=== PATIENT | female | born 1995 | race Caucasian/White ===

== ENCOUNTER 2019-08-02 13:23 | Emergency (ER) | payer OTHER ==
--- NOTE | 2019-08-02 13:30 | EDM.PDOC ---
ED HPI GENERAL MEDICAL PROBLEM - General Chief Complaint: Gastrointestinal Problem Stated Complaint: FLU SYMPTOMS Time Seen by Provider: 08/02/19 13:29 Source of Information: Reports: Patient History Limitations: Reports: No Limitations - History of Present Illness INITIAL COMMENTS - FREE TEXT/NARRATIVE: Patient is a 24-year-old female who is complaining of having diarrhea for the past 7 days. Patient was feeling nauseous several days ago but has had no vomiting. She is somewhat anorexic but has been able to keep down fluids. She denies any blood or pus in her stool. She is not had any fever or chills. She denies any dysuria or back pain. She feeling lightheaded when she stands up. She is complaining of some epigastric abdominal pain. Duration: Day(s): (7), Getting Worse Location: Reports: Abdomen Quality: Reports: Dull Severity: Mild Improves with: Reports: None Worsens with: Reports: Eating Associated Symptoms: Reports: No Other Symptoms abdominal Pain Score (Numeric/FACES): 6 - Related Data Allergies Allergy/AdvReac Type Severity Reaction Status Date / Time No Known Allergies Allergy Verified 08/02/19 13:39 Home Meds: Home Meds . [No Known Home Meds] 08/02/19 [History] ED ROS GENERAL - Review of Systems Review Of Systems: See Below Constitutional: Reports: Weakness, Decreased Appetite Respiratory: Reports: No Symptoms Cardiovascular: Reports: No Symptoms Endocrine: Reports: No Symptoms GI/Abdominal: Reports: Abdominal Pain, Diarrhea, Decreased Appetite. Denies: Distension, Mucous in Stool, Vomiting : Reports: Dysuria Musculoskeletal: Reports: No Symptoms Skin: Reports: No Symptoms Neurological: Reports: No Symptoms ED EXAM, GI/ABD - Physical Exam Exam: See Below Exam Limited By: No Limitations General Appearance: Alert, No Apparent Distress Head: Atraumatic, Normocephalic Neck: Normal Inspection, Supple, Non-Tender Respiratory/Chest: No Respiratory Distress, Lungs Clear, Normal Breath Sounds Cardiovascular: Normal Peripheral Pulses, Regular Rate, Rhythm, No JVD GI/Abdominal Exam: Normal Bowel Sounds, Soft, Non-Tender, No Organomegaly Back Exam: Normal Inspection. No: CVA Tenderness (L), CVA Tenderness (R) Neurological: Alert, Oriented Psychiatric: Normal Affect Skin Exam: Warm, Dry, Normal Color Course - Vital Signs Last Recorded V/S: Last Vital Signs Temp 36.6 C 08/02/19 13:37 Pulse 124 H 08/02/19 13:37 Resp 16 08/02/19 13:37 BP 141/100 H 08/02/19 13:37 Pulse Ox 95 08/02/19 13:37 - Orders/Labs/Meds Orders: Active Orders 24 hr Category Date Time Status WBC, STOOL [OP] Stat Lab 08/02/19 13:51 Ordered Sodium Chloride 0.9% [Saline Flush] Med 08/02/19 13:50 Active 10 ml FLUSH ASDIRECTED PRN Sodium Chloride 0.9% [Saline Flush] Med 08/02/19 13:50 Active 2.5 ml FLUSH ASDIRECTED PRN Sulfamethoxazole/Trimethoprim [Septra DS] Med 08/02/19 16:09 Once 1 tab PO ONETIME ONE Saline Lock Insert [OM.PC] Stat Oth 08/02/19 13:50 Ordered Medication Orders Sodium Chloride (Saline Flush) 10 ml FLUSH ASDIRECTED PRN PRN Reason: Keep Vein Open Last Admin: 08/02/19 14:07 Dose: 10 ml Sodium Chloride (Saline Flush) 2.5 ml FLUSH ASDIRECTED PRN PRN Reason: Keep Vein Open Last Admin: 08/02/19 14:07 Dose: 2.5 ml Trimethoprim/Sulfamethoxazole (Septra Ds) 1 tab PO ONETIME ONE Stop: 08/02/19 16:10 Labs: Laboratory Tests 08/02/19 08/02/19 08/02/19 Range/Units 14:10 14:10 14:56 WBC 12.02 H (4.0-11.0) K/uL RBC 4.85 (4.30-5.90) M/uL Hgb 14.5 (12.0-16.0) g/dL Hct 43.3 (36.0-46.0) % MCV 89.3 (80.0-98.0) fL MCH 29.9 (27.0-32.0) pg MCHC 33.5 (31.0-37.0) g/dL RDW Std Deviation 42.4 (28.0-62.0) fl RDW Coeff of Lamonte 13 (11.0-15.0) % Plt Count 292 (150-400) K/uL MPV 10.90 (7.40-12.00) fL Neut % (Auto) 66.3 (48.0-80.0) % Lymph % (Auto) 26.1 (16.0-40.0) % [place] % (Auto) 6.5 (0.0-15.0) % Eos % (Auto) 0.9 (0.0-7.0) % Baso % (Auto) 0.2 (0.0-1.5) % Neut # (Auto) 8.0 H (1.4-5.7) K/uL Lymph # (Auto) 3.1 H (0.6-2.4) K/uL [place] # (Auto) 0.8 (0.0-0.8) K/uL Eos # (Auto) 0.1 (0.0-0.7) K/uL Baso # (Auto) 0.0 (0.0-0.1) K/uL Nucleated RBC % 0.0 /100WBC Nucleated RBCs # 0 K/uL Sodium 141 (136-145) mmol/L Potassium 3.6 (3.5-5.1) mmol/L Chloride 105 (98-107) mmol/L Carbon Dioxide 26.0 (21.0-32.0) mmol/L BUN 14 (7.0-18.0) mg/dL Creatinine 0.9 (0.6-1.0) mg/dL Est Cr Clr Drug Dosing 111.23 mL/min Estimated GFR (MDRD) > 60.0 ml/min Glucose 111 H (74-106) mg/dL Calcium 9.1 (8.5-10.1) mg/dL Total Bilirubin 0.2 (0.2-1.0) mg/dL AST 11 L (15-37) IU/L ALT 22 (14-63) IU/L Alkaline Phosphatase 84 (46-116) U/L Total Protein 7.9 (6.4-8.2) g/dL Albumin 4.0 (3.4-5.0) g/dL Globulin 3.9 (2.6-4.0) g/dL Albumin/Globulin Ratio 1.0 (0.9-1.6) Urine Color YELLOW Urine Appearance SLT CLOUDY Urine pH 5.5 (5.0-8.0) Ur Specific [place] >= 1.030 (1.001-1.035) Urine Protein NEGATIVE (NEGATIVE) mg/dL Urine Glucose (UA) NEGATIVE (NEGATIVE) mg/dL Urine Ketones NEGATIVE (NEGATIVE) mg/dL Urine Occult Blood TRACE-INTACT H (NEGATIVE) Urine Nitrite NEGATIVE (NEGATIVE) Urine Bilirubin NEGATIVE (NEGATIVE) Urine Urobilinogen 0.2 (<2.0) EU/dL Ur Leukocyte Esterase SMALL H (NEGATIVE) Urine RBC 1-3 (0-2/HPF) Urine WBC 30-35 (0-5/HPF) Ur Epithelial Cells MODERATE (NONE-FEW) Urine Bacteria 3+ H (NEGATIVE) Urine Mucus HEAVY (NONE-MOD) Urine HCG, Qual (NEGATIVE) 08/02/19 Range/Units 14:56 WBC (4.0-11.0) K/uL RBC (4.30-5.90) M/uL Hgb (12.0-16.0) g/dL Hct (36.0-46.0) % MCV (80.0-98.0) fL MCH (27.0-32.0) pg MCHC (31.0-37.0) g/dL RDW Std Deviation (28.0-62.0) fl RDW Coeff of [place] (11.0-15.0) % Plt Count (150-400) K/uL MPV (7.40-12.00) fL Neut % (Auto) (48.0-80.0) % Lymph % (Auto) (16.0-40.0) % [place] % (Auto) (0.0-15.0) % Eos % (Auto) (0.0-7.0) % Baso % (Auto) (0.0-1.5) % Neut # (Auto) (1.4-5.7) K/uL Lymph # (Auto) (0.6-2.4) K/uL [place] # (Auto) (0.0-0.8) K/uL Eos # (Auto) (0.0-0.7) K/uL Baso # (Auto) (0.0-0.1) K/uL Nucleated RBC % /100WBC Nucleated RBCs # K/uL Sodium (136-145) mmol/L Potassium (3.5-5.1) mmol/L Chloride (98-107) mmol/L Carbon Dioxide (21.0-32.0) mmol/L BUN (7.0-18.0) mg/dL Creatinine (0.6-1.0) mg/dL Est Cr Clr Drug Dosing mL/min Estimated GFR (MDRD) ml/min Glucose (74-106) mg/dL Calcium (8.5-10.1) mg/dL Total Bilirubin (0.2-1.0) mg/dL AST (15-37) IU/L ALT (14-63) IU/L Alkaline Phosphatase (46-116) U/L Total Protein (6.4-8.2) g/dL Albumin (3.4-5.0) g/dL Globulin (2.6-4.0) g/dL Albumin/Globulin Ratio (0.9-1.6) Urine Color Urine Appearance Urine pH (5.0-8.0) Ur Specific [place] (1.001-1.035) Urine Protein (NEGATIVE) mg/dL Urine Glucose (UA) (NEGATIVE) mg/dL Urine Ketones (NEGATIVE) mg/dL Urine Occult Blood (NEGATIVE) Urine Nitrite (NEGATIVE) Urine Bilirubin (NEGATIVE) Urine Urobilinogen (<2.0) EU/dL Ur Leukocyte Esterase (NEGATIVE) Urine RBC (0-2/HPF) Urine WBC (0-5/HPF) Ur Epithelial Cells (NONE-FEW) Urine Bacteria (NEGATIVE) Urine Mucus (NONE-MOD) Urine HCG, Qual NEGATIVE (NEGATIVE) Meds: Medications Generic Name Dose Route Start Last Admin Trade Name Freq PRN Reason Stop Dose Admin Sodium Chloride 10 ml 08/02/19 13:50 08/02/19 14:07 Saline Flush FLUSH 10 ml ASDIRECTED PRN Administration Keep Vein Open Sodium Chloride 2.5 ml 08/02/19 13:50 08/02/19 14:07 Saline Flush FLUSH 2.5 ml ASDIRECTED PRN Administration Keep Vein Open Trimethoprim/Sulfamethoxazole 1 tab 08/02/19 16:09 Septra Ds PO 08/02/19 16:10 ONETIME ONE Discontinued Medications Generic Name Dose Route Start Last Admin Trade Name Freq PRN Reason Stop Dose Admin Sodium Chloride 1,000 mls @ 999 mls/hr 08/02/19 13:50 08/02/19 14:06 Normal Saline IV 08/02/19 14:50 999 mls/hr BOLUS ONE Administration - Re-Assessments/Exams Free Text/Narrative Re-Assessment/Exam: 08/02/19 16:12 Patient has had no diarrhea while in the department. She is feeling better at this time and her lab work is negative except for urinary tract infection. I am starting her on Bactrim which should treat the UTI and advising her to do [id number] Imodium if the diarrhea is continuing. She should return to ER if symptoms are worse. See her PCP if not improving. Departure - Departure Time of Disposition: 16:13 Disposition: Home, Self-Care 01 Condition: Good Clinical Impression: Diarrhea, UTI, Urinary tract infectious disease - Discharge Information Instructions: Dehydration, Adult, [id number], Viral Gastroenteritis, Adult, [id number] Referrals: PCP,None [Primary Care Provider] - Forms: ED Department Discharge Additional Instructions: The following information is given to patients seen in the emergency department who are being discharged to home. This information is to outline your options for follow-up care. We provide all patients seen in our emergency department with a follow-up referral. The need for follow-up, as well as the timing and circumstances, are variable depending upon the specifics of your emergency department visit. If you don't have a primary care physician on staff, we will provide you with a referral. We always advise you to contact your personal physician following an emergency department visit to inform them of the circumstance of the visit and for follow-up with them and/or the need for any referrals to a consulting specialist. The emergency department will also refer you to a specialist when appropriate. This referral assures that you have the opportunity for follow-up care with a specialist. All of these measure are taken in an effort to provide you with optimal care, which includes your follow-up. Under all circumstances we always encourage you to contact your private physician who remains a resource for coordinating your care. When calling for follow-up care, please make the office aware that this follow-up is from your recent emergency room visit. If for any reason you are refused follow-up, please contact the [facility] Emergency Department at and asked to speak to the emergency department charge nurse. Sepsis Event Note - Focused Exam Vital Signs: Vital Signs Temp Pulse Resp BP Pulse Ox 08/02/19 13:37 36.6 C 124 H 16 141/100 H 95 Date Exam was Performed: 08/02/19 Time Exam was Performed: 16:10 - My Orders Last 24 Hours: My Active Orders 08/02/19 13:50 Sodium Chloride 0.9% [Saline Flush] 10 ml FLUSH ASDIRECTED PRN Sodium Chloride 0.9% [Saline Flush] 2.5 ml FLUSH ASDIRECTED PRN Saline Lock Insert [OM.PC] Stat 08/02/19 13:51 WBC, STOOL [OP] Stat 08/02/19 16:09 Sulfamethoxazole/Trimethoprim [Septra DS] 1 tab PO ONETIME ONE - Assessment/Plan Last 24 Hours: My Active Orders 08/02/19 13:50 Sodium Chloride 0.9% [Saline Flush] 10 ml FLUSH ASDIRECTED PRN Sodium Chloride 0.9% [Saline Flush] 2.5 ml FLUSH ASDIRECTED PRN Saline Lock Insert [OM.PC] Stat 08/02/19 13:51 WBC, STOOL [OP] Stat 08/02/19 16:09 Sulfamethoxazole/Trimethoprim [Septra DS] 1 tab PO ONETIME ONE
[2019-08-02] MEDS ORDERED: Sodium Chloride 0.9% 10 ML Syringe FLUSH PRN (13:50)
[2019-08-02] MEDS ORDERED: Sodium Chloride 0.9% 1,000 ML IV ONE (13:50)
[2019-08-02] MEDS ORDERED: Sodium Chloride 0.9% 2.5 ML Syringe FLUSH PRN (13:50)
[2019-08-02 14:35] LABS: BLOOD UREA NITROGEN,BUN 14 mg/dL (7.0-18.0); CHLORIDE,CL 105 mmol/L (98-107); GLUCOSE RANDOM 111 mg/dL (74-106); POTASSIUM,K 3.6 mmol/L (3.5-5.1); SODIUM,NA 141 mmol/L (136-145)
[2019-08-02] MEDS ORDERED: Sulfamethoxazole/Trimethoprim 800-160 MG Tab PO ONE (16:09)
== END 2019-08-02 17:01 | disposition home or self-care (01) ==
LOC: MW.ED 13:23
DX: R19.7 Diarrhea, unspecified (principal); N39.0 Urinary tract infection, site not specified
CPT/HCPCS: 80053; 81001; 81025; 85025; 96360; 96361; 99284; A9270; J7030

== ENCOUNTER 2019-08-04 07:48 | Emergency (ER) | payer OTHER ==
--- NOTE | 2019-08-04 08:05 | EDM.PDOC ---
ED HPI GENERAL MEDICAL PROBLEM - General Chief Complaint: Back Pain or Injury Stated Complaint: SEVERE LOWER BACK SPASMS Time Seen by Provider: 08/04/19 07:54 Source of Information: Reports: Patient History Limitations: Reports: No Limitations - History of Present Illness INITIAL COMMENTS - FREE TEXT/NARRATIVE: Patient is a 24-year-old female who is complaining of lower back pain worse on the right is been ongoing for the last 2 days. Patient is getting right lower extremity radiculopathy with this pain. She has had previously similar pain in the past but never as severe. She was seen by me several days ago's with a urinary tract infection and a gastroenteritis. At that time she has not had any back pain. She denies any injury lifting or twisting prior to onset of the pain. She denies any fever or chills and has no incontinence complaints. Her previous diarrhea has resolved. She is taking nothing for current symptoms. Duration: Day(s): (2) Location: Reports: Back Quality: Reports: Ache, Dull Severity: Severe Improves with: Reports: None Worsens with: Reports: Movement Context: Reports: Activity Associated Symptoms: Reports: No Other Symptoms Low Right Back Pain Score (Numeric/FACES): 8 - Related Data Allergies Allergy/AdvReac Type Severity Reaction Status Date / Time No Known Allergies Allergy Verified 08/04/19 08:06 Home Meds: Home Meds Acetaminophen/HYDROcodone [[place] 325-5 MG] 1 tab PO Q6H PRN #10 tablet 08/04/19 [Rx] Lidocaine 5% [Lidoderm 5%] 1 patch TOP DAILY PRN #14 patch 08/04/19 [Rx] Ondansetron [Zofran ODT] 4 mg PO Q6H PRN #10 tab.dis 08/04/19 [Rx] predniSONE 20 mg PO WITHBREAKFAST PRN #7 tab 08/04/19 [Rx] Past Medical History [employer] History: Reports: Endometriosis Endocrine/Metabolic History: Reports: Hypothyroidism, Other (See Below) Other Endocrine/Metabolic History: Insulin Resistant Social & Family History - Family History Family Medical History: Noncontributory Endocrine/Metabolic: Reports: Diabetes, Type I ED ROS GENERAL - Review of Systems Review Of Systems: Comprehensive ROS is negative, except as noted in HPI. ED EXAM,LOWER BACK PAIN/INJURY - Physical Exam Exam: See Below Exam Limited By: No Limitations General Appearance: Alert, Mild Distress Head: Atraumatic, Normocephalic Neck: Normal Inspection Respiratory/Chest: No Respiratory Distress, Lungs Clear, Normal Breath Sounds Cardiovascular: Regular Rate, Rhythm, No Edema, No JVD GI/Abdominal: Normal Bowel Sounds, Soft, Non-Tender Back Exam: Normal Inspection, Decreased Range of Motion, Muscle Spasm, Paraspinal Tenderness. No: Vertebral Tenderness Extremities: Normal Inspection Neurological: Alert Psychiatric: Normal Affect, Normal Mood Skin Exam: Warm, Dry Lymphatic: No Adenopathy Course - Vital Signs Last Recorded V/S: Last Vital Signs Temp 36.3 C 08/04/19 08:01 Pulse 87 08/04/19 11:13 Resp 18 08/04/19 11:13 BP 138/81 08/04/19 11:13 Pulse Ox 98 08/04/19 11:13 - Orders/Labs/Meds Orders: Active Orders 24 hr Category Date Time Status Sodium Chloride 0.9% [Saline Flush] Med 08/04/19 08:11 Active 10 ml FLUSH ASDIRECTED PRN Sodium Chloride 0.9% [Saline Flush] Med 08/04/19 08:11 Active 2.5 ml FLUSH ASDIRECTED PRN Saline Lock Insert [OM.PC] Stat Oth 08/04/19 08:11 Ordered Medication Orders Sodium Chloride (Saline Flush) 10 ml FLUSH ASDIRECTED PRN PRN Reason: Keep Vein Open Last Admin: 08/04/19 08:43 Dose: 10 ml Sodium Chloride (Saline Flush) 2.5 ml FLUSH ASDIRECTED PRN PRN Reason: Keep Vein Open Last Admin: 08/04/19 08:43 Dose: 2.5 ml Labs: Laboratory Tests 08/04/19 08/04/19 08/04/19 Range/Units 11:10 11:10 11:10 WBC 12.04 H (4.0-11.0) K/uL RBC 4.57 (4.30-5.90) M/uL Hgb 13.6 (12.0-16.0) g/dL Hct 41.2 (36.0-46.0) % MCV 90.2 (80.0-98.0) fL MCH 29.8 (27.0-32.0) pg MCHC 33.0 (31.0-37.0) g/dL RDW Std Deviation 42.6 (28.0-62.0) fl RDW Coeff of [place] 13 (11.0-15.0) % Plt Count 250 (150-400) K/uL MPV 10.80 (7.40-12.00) fL Neut % (Auto) 89.1 H (48.0-80.0) % Lymph % (Auto) 8.4 L (16.0-40.0) % [place] % (Auto) 2.2 (0.0-15.0) % Eos % (Auto) 0.1 (0.0-7.0) % Baso % (Auto) 0.2 (0.0-1.5) % Neut # (Auto) 10.7 H (1.4-5.7) K/uL Lymph # (Auto) 1.0 (0.6-2.4) K/uL [place] # (Auto) 0.3 (0.0-0.8) K/uL Eos # (Auto) 0.0 (0.0-0.7) K/uL Baso # (Auto) 0.0 (0.0-0.1) K/uL Nucleated RBC % 0.0 /100WBC Nucleated RBCs # 0 K/uL Sodium 141 (136-145) mmol/L Potassium 3.5 (3.5-5.1) mmol/L Chloride 107 (98-107) mmol/L Carbon Dioxide 24.5 (21.0-32.0) mmol/L BUN 6 L (7.0-18.0) mg/dL Creatinine 0.8 (0.6-1.0) mg/dL Est Cr Clr Drug Dosing 125.13 mL/min Estimated GFR (MDRD) > 60.0 ml/min Glucose 103 (74-106) mg/dL Calcium 8.9 (8.5-10.1) mg/dL Total Bilirubin 0.4 (0.2-1.0) mg/dL AST 14 L (15-37) IU/L ALT 19 (14-63) IU/L Alkaline Phosphatase 71 (46-116) U/L Total Protein 7.2 (6.4-8.2) g/dL Albumin 3.6 (3.4-5.0) g/dL Globulin 3.6 (2.6-4.0) g/dL Albumin/Globulin Ratio 1.0 (0.9-1.6) Urine Color YELLOW Urine Appearance HAZY Urine pH 5.5 (5.0-8.0) Ur Specific [place] 1.010 (1.001-1.035) Urine Protein NEGATIVE (NEGATIVE) mg/dL Urine Glucose (UA) NEGATIVE (NEGATIVE) mg/dL Urine Ketones NEGATIVE (NEGATIVE) mg/dL Urine Occult Blood TRACE-LYSED H (NEGATIVE) Urine Nitrite NEGATIVE (NEGATIVE) Urine Bilirubin NEGATIVE (NEGATIVE) Urine Urobilinogen 0.2 (<2.0) EU/dL Ur Leukocyte Esterase SMALL H (NEGATIVE) Urine RBC 0-2 (0-2/HPF) Urine WBC 3-5 (0-5/HPF) Ur Epithelial Cells FEW (NONE-FEW) Urine Bacteria 1+ H (NEGATIVE) Urine Mucus LIGHT (NONE-MOD) Urine Trichomonas PRESENT (NEGATIVE) Meds: Medications Generic Name Dose Route Start Last Admin Trade Name Freq PRN Reason Stop Dose Admin Sodium Chloride 10 ml 08/04/19 08:11 08/04/19 08:43 Saline Flush FLUSH 10 ml ASDIRECTED PRN Administration Keep Vein Open Sodium Chloride 2.5 ml 08/04/19 08:11 08/04/19 08:43 Saline Flush FLUSH 2.5 ml ASDIRECTED PRN Administration Keep Vein Open Discontinued Medications Generic Name Dose Route Start Last Admin Trade Name Freq PRN Reason Stop Dose Admin Cyclobenzaprine HCl 5 mg 08/04/19 08:11 08/04/19 08:42 Flexeril PO 08/04/19 08:12 5 mg ONETIME ONE Administration Sodium Chloride 1,000 mls @ 999 mls/hr 08/04/19 08:11 08/04/19 08:39 Normal Saline IV 08/04/19 09:11 999 mls/hr BOLUS ONE Administration Ketorolac Tromethamine 30 mg 08/04/19 08:11 08/04/19 08:42 Toradol IVPUSH 08/04/19 08:12 30 mg ONETIME ONE Administration Lidocaine 700 mg 08/04/19 10:12 08/04/19 10:43 Lidoderm 5% TOP 08/04/19 10:13 700 mg ONETIME ONE Administration Oxycodone/Acetaminophen 1 tab 08/04/19 09:46 08/04/19 09:51 Percocet 325-5 Mg PO 08/04/19 09:47 1 tab ONETIME ONE Administration Prednisone 60 mg 08/04/19 08:11 08/04/19 08:39 Prednisone PO 08/04/19 08:12 60 mg ONETIME ONE Administration - Re-Assessments/Exams Free Text/Narrative Re-Assessment/Exam: 08/04/19 10:09 Patient is feeling mildly improved after fluids and medications. I have given her Percocet for the back pain. Departure - Departure Time of Disposition: 11:53 Disposition: Home, Self-Care 01 Condition: Good Clinical Impression: Lower back pain - Discharge Information Instructions: Pain Without a Known Cause Referrals: PCP,None [Primary Care Provider] - Forms: ED Department Discharge Additional Instructions: Ice and or heat, massage if tolerated. Ibuprofen with meals. Meds as prescribed. Continue with Bactrim. Return to ER if having fever chills vomiting or worse. Care Plan Goals: The following information is given to patients seen in the emergency department who are being discharged to home. This information is to outline your options for follow-up care. We provide all patients seen in our emergency department with a follow-up referral. The need for follow-up, as well as the timing and circumstances, are variable depending upon the specifics of your emergency department visit. If you don't have a primary care physician on staff, we will provide you with a referral. We always advise you to contact your personal physician following an emergency department visit to inform them of the circumstance of the visit and for follow-up with them and/or the need for any referrals to a consulting specialist. The emergency department will also refer you to a specialist when appropriate. This referral assures that you have the opportunity for follow-up care with a specialist. All of these measure are taken in an effort to provide you with optimal care, which includes your follow-up. Under all circumstances we always encourage you to contact your private physician who remains a resource for coordinating your care. When calling for follow-up care, please make the office aware that this follow-up is from your recent emergency room visit. If for any reason you are refused follow-up, please contact the [facility] Emergency Department at and asked to speak to the emergency department charge nurse. Sepsis Event Note - Focused Exam Vital Signs: Vital Signs Temp Pulse Resp BP Pulse Ox 08/04/19 11:13 87 18 138/81 98 08/04/19 09:15 77 18 127/83 98 08/04/19 08:01 36.3 C 121 H 18 122/88 96 Date Exam was Performed: 08/04/19 Time Exam was Performed: 11:53 - My Orders Last 24 Hours: My Active Orders 08/04/19 08:11 Sodium Chloride 0.9% [Saline Flush] 10 ml FLUSH ASDIRECTED PRN Sodium Chloride 0.9% [Saline Flush] 2.5 ml FLUSH ASDIRECTED PRN Saline Lock Insert [OM.PC] Stat - Assessment/Plan Last 24 Hours: My Active Orders 08/04/19 08:11 Sodium Chloride 0.9% [Saline Flush] 10 ml FLUSH ASDIRECTED PRN Sodium Chloride 0.9% [Saline Flush] 2.5 ml FLUSH ASDIRECTED PRN Saline Lock Insert [OM.PC] Stat
[2019-08-04] MEDS ORDERED: predniSONE 10 MG Tab PO ONE (08:11)
[2019-08-04] MEDS ORDERED: Sodium Chloride 0.9% 2.5 ML Syringe FLUSH PRN (08:11)
[2019-08-04] MEDS ORDERED: Ketorolac 30 MG/ML SDV IVPUSH ONE (08:11)
[2019-08-04] MEDS ORDERED: Cyclobenzaprine 10 MG Tab PO ONE (08:11)
[2019-08-04] MEDS ORDERED: Sodium Chloride 0.9% 10 ML Syringe FLUSH PRN (08:11)
[2019-08-04] MEDS ORDERED: Sodium Chloride 0.9% 1,000 ML IV ONE (08:11)
[2019-08-04] MEDS ORDERED: Acetaminophen/oxyCODONE 325-5 MG Tab PO ONE (09:46)
[2019-08-04] MEDS ORDERED: Lidocaine 5% 700 MG Patch TOP ONE (10:12)
[2019-08-04 11:38] LABS: BLOOD UREA NITROGEN,BUN 6 mg/dL (7.0-18.0); CARBON DIOXIDE,CO2 24.5 mmol/L (21.0-32.0); CHLORIDE,CL 107 mmol/L (98-107); GLUCOSE RANDOM 103 mg/dL (74-106); POTASSIUM,K 3.5 mmol/L (3.5-5.1); SODIUM,NA 141 mmol/L (136-145)
== END 2019-08-04 12:33 | disposition home or self-care (01) ==
LOC: MW.ED 07:48
DX: M54.5 Low back pain (principal)
CPT/HCPCS: 36415; 80053; 81001; 85025; 96361; 96374; 99283; A9270; J1885; J7030

== ENCOUNTER 2021-05-26 16:37 | Emergency (ER) | payer BC ==
[2021-05-26] MEDS ORDERED: Ketorolac 15 MG/ML SDV IVPUSH STA (16:57)
[2021-05-26] MEDS ORDERED: Acetaminophen 500 MG Tab PO ONE (16:57)
[2021-05-26] MEDS ORDERED: Sodium Chloride 0.9% 1,000 ML IV ONE ×2 (16:57→17:15)
--- NOTE | 2021-05-26 16:57 | EDM.PDOC ---
<KushalannEdis samayoa Sammi - Last Filed: 05/26/21 18:11> ED HPI GENERAL MEDICAL PROBLEM - General Chief Complaint: Respiratory Problem Stated Complaint: POSSIBLE PNEUMONIA Time Seen by Provider: 05/26/21 16:37 Source of Information: Reports: Patient History Limitations: Reports: No Limitations - History of Present Illness INITIAL COMMENTS - FREE TEXT/NARRATIVE: 25-year-old female presents for concern for pneumonia. Patient notes that for roughly the last week she thought that she had laryngitis due to a sore throat, nonproductive cough, shortness of breath. 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 She did go to an outpatient clinic on Wednesday and had a rapid Covid and influenza test which were both negative. She was diagnosed with presumptive bronchitis. She notes that she has had worsening difficulty breathing, dizziness, nausea, body aches. Chest Pain Score (Numeric/FACES): 7 - Related Data Allergies Allergy/AdvReac Type Severity Reaction Status Date / Time No Known Allergies Allergy Verified 05/26/21 16:58 Home Meds: Home Meds Codeine/guaiFENesin [guaiFENesin-Codeine Syrup] 10 ml PO Q6H PRN #240 ml 05/26/21 [Rx] DULoxetine [Cymbalta] 90 mg PO DAILY 05/26/21 [History] cloNIDine HCL [Clonidine HCl] 1 tab PO DAILY 05/26/21 [History] hydrOXYzine HCL [Hydroxyzine HCl] 1 tab PO DAILY 05/26/21 [History] Past Medical History [employer] History: Reports: Endometriosis Endocrine/Metabolic History: Reports: Hypothyroidism, Other (See Below) Other Endocrine/Metabolic History: Insulin Resistant Social & Family History - Family History Family Medical History: No Pertinent Family History Endocrine/Metabolic: Reports: Diabetes, Type I - Caffeine Use Caffeine Use: Reports: Coffee, Tea ED ROS GENERAL - Review of Systems Review Of Systems: Comprehensive ROS is negative, except as noted in HPI. ED EXAM, GENERAL - Physical Exam Exam: See Below Exam Limited By: No Limitations General Appearance: Alert, WD/WN, No Apparent Distress Ears: Hearing Grossly Normal Throat/Mouth: Normal Voice, No Airway Compromise Head: Atraumatic, Normocephalic Neck: Normal Inspection Respiratory/Chest: No Respiratory Distress, Lungs Clear, Normal Breath Sounds, No Accessory Muscle Use Cardiovascular: Normal Peripheral Pulses, Tachycardia Extremities: Normal Inspection Neurological: Alert, Normal Cognition Psychiatric: Normal Affect, Normal Mood Course - Re-Assessments/Exams Free Text/Narrative Re-Assessment/Exam: 05/26/21 17:16 Patient presents with Covid-like symptoms, significant tachycardia. Will get labs. Will give 2 L IV fluid bolus. Will give Toradol and Tylenol. Will get chest x-ray. Will get Covid testing. 05/26/21 18:03 D-dimer elevated. Will get CTA chest. 05/26/21 18:10 COVID testing and labs grossly unremarkable aside from mild leukocytosis and the elevated D-dimer. Will get CTA to r/o PE. HR has decreased to 100 Departure - Departure Disposition: Home, Self-Care 01 Clinical Impression: Bronchitis - Discharge Information Instructions: Acute Bronchitis, Adult, [id number] Referrals: PCP,None [Primary Care Provider] - Forms: ED Department Discharge Additional Instructions: You were seen and evaluated in ER today secondary to signs and symptoms consistent with bronchitis. Your D-dimer test was slightly elevated. This is an extremely nonspecific test but sometimes it is elevated with blood clots in the lung. After 2 unsuccessful attempts of obtaining a CT angiogram of your chest, I feel that it would be in your best interest to hold off on giving you any more contrast dye and to reevaluate your symptoms in the next 1 to 2 days. If you still have chest discomfort I would recommend that you return to the ER and we can perform a CTA at that point. Your presentation appears to be more consistent with bronchitis and the pain in your chest appears to be more consistent with pain from the persistent coughing inflammation that you have been experiencing in your lungs. You will be discharged home with instructions to continue your antibiotics and I will write you a prescription for Robitussin with codeine to help you get some sleep at night. Please make an appointment to see your family doctor in the next 1 to 2 days. Please return to ER sooner if you develop any new or concerning symptoms. The following information is given to patients seen in the emergency department who are being discharged to home. This information is to outline your options for follow-up care. We provide all patients seen in our emergency department with a follow-up referral. The need for follow-up, as well as the timing and circumstances, are variable depending upon the specifics of your emergency department visit. If you don't have a primary care physician on staff, we will provide you with a referral. We always advise you to contact your personal physician following an emergency department visit to inform them of the circumstance of the visit and for follow-up with them and/or the need for any referrals to a consulting specialist. The emergency department will also refer you to a specialist when appropriate. This referral assures that you have the opportunity for follow-up care with a specialist. All of these measure are taken in an effort to provide you with optimal care, which includes your follow-up. Under all circumstances we always encourage you to contact your private physician who remains a resource for coordinating your care. When calling for follow-up care, please make the office aware that this follow-up is from your recent emergency room visit. If for any reason you are refused follow-up, please contact the [facility] Emergency Department at and asked to speak to the emergency department charge nurse. [facility] - Primary Care [address] [place] [address] [id number] [address] [address] Sepsis Event Note (ED) - Evaluation Sepsis Screening Result: No Definite Risk <Brian Childers - Last Filed: 05/26/21 21:58> ED HPI GENERAL MEDICAL PROBLEM - History of Present Illness INITIAL COMMENTS - FREE TEXT/NARRATIVE: 9:53 PM: Signout received at 7 PM. Patient presents ER today secondary to cough URI symptoms and chest discomfort. Patient has slightly elevated D-dimer so a CTA was ordered. Patient CTA was suboptimal and they were unable to evaluate the pulmonary artery trees. Patient had a repeat CTA performed and again there was infiltration of the contrast in her arm. At this point, I do not feel that it would be beneficial for the patient to receive any further contrast. Patient's presentation appears to be extremely low risk for pulmonary embolism. Patient does have a cough and URI symptoms and has taken Zithromax. I would recommend at this time starting the patient on Robitussin with codeine to help her get some rest and I recommended that she return to the ED in the next 1 to 2 days if her symptoms are not resolved and we can consider getting a CTA at that point. Patient feels very comfortable with this plan. Reassessment at the time of disposition demonstrates that the patient is in no acute distress. The patient has remained stable throughout the entire ED visit and is without objective evidence for acute process requiring urgent intervention or hospitalization. The patient is stable for discharge, counseling is provided as documented above, discussed symptomatic treatment and specific conditions for return. I have spoken with the patient/caregiver and discussed todays findings, in addition to providing specific details for the plan of care. Questions are answered and there is agreement with the plan. ED ROS GENERAL - Review of Systems Review Of Systems: See Below ED EXAM, GENERAL - Physical Exam Exam: See Below Course - Vital Signs Last Recorded V/S: Last Vital Signs Temp 96.9 F 05/26/21 16:49 Pulse 119 H 05/26/21 20:41 Resp 22 H 05/26/21 16:49 BP 130/78 05/26/21 20:41 Pulse Ox 99 05/26/21 20:41 - Orders/Labs/Meds Orders: Active Orders 24 hr Category Date Time Status Pulse Oximetry [RC] ASDIRECTED Care 05/26/21 16:57 Active Ang Chest [CT] Stat Exams 05/26/21 19:50 Ordered Saline Lock Insert [OM.PC] Stat Oth 05/26/21 16:57 Ordered Labs: Laboratory Tests 05/26/21 05/26/21 05/26/21 Range/Units 17:06 17:20 17:20 WBC 11.51 H (4.0-11.0) K/uL RBC 4.71 (4.30-5.90) M/uL Hgb 14.0 (12.0-16.0) g/dL Hct 43.0 (36.0-46.0) % MCV 91.3 (80.0-98.0) fL MCH 29.7 (27.0-32.0) pg MCHC 32.6 (31.0-37.0) g/dL RDW Std Deviation 43.8 (28.0-62.0) fl RDW Coeff of Lamonte 13 (11.0-15.0) % Plt Count 322 (150-400) K/uL MPV 10.80 (7.40-12.00) fL Neut % (Auto) 72.2 (48.0-80.0) % Lymph % (Auto) 16.7 (16.0-40.0) % [place] % (Auto) 8.3 (0.0-15.0) % Eos % (Auto) 2.6 (0.0-7.0) % Baso % (Auto) 0.2 (0.0-1.5) % Neut # (Auto) 8.3 H (1.4-5.7) K/uL Lymph # (Auto) 1.9 (0.6-2.4) K/uL [place] # (Auto) 1.0 H (0.0-0.8) K/uL Eos # (Auto) 0.3 (0.0-0.7) K/uL Baso # (Auto) 0.0 (0.0-0.1) K/uL Nucleated RBC % 0.0 /100WBC Nucleated RBCs # 0 K/uL INR 1.08 APTT 24.5 (18.6-31.3) SEC D-Dimer, Quantitative 0.61 H (0.0-0.50) mg/L FEU Sodium (136-145) mmol/L Potassium (3.5-5.1) mmol/L Chloride (98-107) mmol/L Carbon Dioxide (21.0-32.0) mmol/L BUN (7.0-18.0) mg/dL Creatinine (0.6-1.0) mg/dL Est Cr Clr Drug Dosing mL/min Estimated GFR (MDRD) ml/min Glucose (74-106) mg/dL Lactic Acid (0.4-2.0) mmol/L Calcium (8.5-10.1) mg/dL Total Bilirubin (0.2-1.0) mg/dL AST (15-37) IU/L ALT (14-63) IU/L Alkaline Phosphatase (46-116) U/L Troponin I (0.000-0.056) ng/mL Total Protein (6.4-8.2) g/dL Albumin (3.4-5.0) g/dL Globulin (2.6-4.0) g/dL Albumin/Globulin Ratio (0.9-1.6) HCG, Qual (NEG) SARS-CoV-2 RNA (DORIS) NEGATIVE (NEGATIVE) 05/26/21 05/26/21 05/26/21 Range/Units 17:20 17:20 17:35 WBC (4.0-11.0) K/uL RBC (4.30-5.90) M/uL Hgb (12.0-16.0) g/dL Hct (36.0-46.0) % MCV (80.0-98.0) fL MCH (27.0-32.0) pg MCHC (31.0-37.0) g/dL RDW Std Deviation (28.0-62.0) fl RDW Coeff of Lamonte (11.0-15.0) % Plt Count (150-400) K/uL MPV (7.40-12.00) fL Neut % (Auto) (48.0-80.0) % Lymph % (Auto) (16.0-40.0) % [place] % (Auto) (0.0-15.0) % Eos % (Auto) (0.0-7.0) % Baso % (Auto) (0.0-1.5) % Neut # (Auto) (1.4-5.7) K/uL Lymph # (Auto) (0.6-2.4) K/uL [place] # (Auto) (0.0-0.8) K/uL Eos # (Auto) (0.0-0.7) K/uL Baso # (Auto) (0.0-0.1) K/uL Nucleated RBC % /100WBC Nucleated RBCs # K/uL INR APTT (18.6-31.3) SEC D-Dimer, Quantitative (0.0-0.50) mg/L FEU Sodium 142 (136-145) mmol/L Potassium 4.0 (3.5-5.1) mmol/L Chloride 103 (98-107) mmol/L Carbon Dioxide 29.4 (21.0-32.0) mmol/L BUN 8 (7.0-18.0) mg/dL Creatinine 0.9 (0.6-1.0) mg/dL Est Cr Clr Drug Dosing 110.27 mL/min Estimated GFR (MDRD) > 60.0 ml/min Glucose 115 H (74-106) mg/dL Lactic Acid 1.3 (0.4-2.0) mmol/L Calcium 8.8 (8.5-10.1) mg/dL Total Bilirubin 0.3 (0.2-1.0) mg/dL AST 19 (15-37) IU/L ALT 32 (14-63) IU/L Alkaline Phosphatase 91 (46-116) U/L Troponin I < 0.050 (0.000-0.056) ng/mL Total Protein 7.5 (6.4-8.2) g/dL Albumin 3.5 (3.4-5.0) g/dL Globulin 4.0 (2.6-4.0) g/dL Albumin/Globulin Ratio 0.9 (0.9-1.6) HCG, Qual NEGATIVE (NEG) SARS-CoV-2 RNA (DORIS) (NEGATIVE) Meds: Medications Discontinued Medications Generic Name Dose Route Start Last Admin Trade Name Freq PRN Reason Stop Dose Admin Acetaminophen 1,000 mg 05/26/21 16:57 05/26/21 17:23 Acetaminophen 500 Mg Tab PO 05/26/21 16:58 1,000 mg ONETIME ONE Administration Sodium Chloride 1,000 mls @ 999 mls/hr 05/26/21 16:57 05/26/21 17:24 Normal Saline IV 05/26/21 17:57 999 mls/hr .Bolus ONE Administration Sodium Chloride 1,000 mls @ 999 mls/hr 05/26/21 17:15 05/26/21 17:25 Normal Saline IV 05/26/21 18:15 Not Given .Bolus ONE Iopamidol 100 ml 05/26/21 20:10 Iopamidol 755 Mg/Ml 100 Ml Bottle IVPUSH 05/26/21 20:11 ONETIME ONE Ketorolac Tromethamine 15 mg 05/26/21 16:57 05/26/21 17:23 Ketorolac 15 Mg/Ml Sdv IVPUSH 05/26/21 16:58 15 mg STAT STA Administration Departure - Departure Time of Disposition: 21:55 Condition: Good Sepsis Event Note (ED) - Focused Exam Vital Signs: Vital Signs Temp Pulse Resp BP Pulse Ox 05/26/21 20:41 119 H 130/78 99 05/26/21 16:49 96.9 F 136 H 22 H 151/104 H 96 - My Orders Last 24 Hours: My Active Orders 05/26/21 19:50 Ang Chest [CT] Stat - Assessment/Plan Last 24 Hours: My Active Orders 05/26/21 19:50 Ang Chest [CT] Stat
--- NOTE | 2021-05-26 17:44 | CR ---
INDICATION: Shortness of breath. TECHNIQUE: Chest 1 view. COMPARISON: None. FINDINGS: Cardiovascular and mediastinum: Heart size and vasculature are normal in caliber and appearance. Lungs and pleural spaces: Lungs are clear. No sign of infiltrate or mass. No sign of pleural effusion. No pneumothorax. Bones and soft tissues: No significant findings. IMPRESSION: Normal chest. Lungs are clear. Dictated by Salinas Moncada MD @ 05/26/2021 5:42:40 PM (Electronically Signed)
[2021-05-26 17:58] LABS: BLOOD UREA NITROGEN,BUN 8 mg/dL (7.0-18.0); CARBON DIOXIDE,CO2 29.4 mmol/L (21.0-32.0); CHLORIDE,CL 103 mmol/L (98-107); GLUCOSE RANDOM 115 mg/dL (74-106); SODIUM,NA 142 mmol/L (136-145)
--- NOTE | 2021-05-26 19:33 | CT ---
INDICATION: Shortness of breath. COMPARISON: 05/26/2021 chest x-ray. TECHNIQUE: CT angiography of the chest PE protocol. 100 cc IV [id number]. FINDINGS: Suboptimal contrast bolus timing, with main pulmonary artery measuring 109 Hounsfield units, nondiagnostic for PE. Heart size is within normal limits. No pericardial fusion. No enlarged thoracic lymph nodes. Small accessory splenule. Imaged upper abdomen is otherwise unremarkable. The bones are unremarkable. No focal lung consolidation, pleural effusion or pneumothorax. No suspicious pulmonary nodule or mass. IMPRESSION: 1. Nondiagnostic exam for PE due to suboptimal bolus timing. 2. Otherwise no acute cardiopulmonary abnormality. Please note that all CT scans at this facility use dose modulation, iterative reconstruction, and/or weight-based dosing when appropriate to reduce radiation dose to as low as reasonably achievable. Dictated by Shiraz Spencer MD @ 05/26/2021 7:32:08 PM (Electronically Signed)
[2021-05-26] MEDS ORDERED: Iopamidol 755 Mg/ML 100 ML Bottle IVPUSH ONE (20:10)
== END 2021-05-26 22:16 | disposition home or self-care (01) ==
LOC: MW.ED 16:37
DX: J40 Bronchitis, not specified as acute or chronic (principal); E03.9 Hypothyroidism, unspecified; Z20.822 Contact with and (suspected) exposure to COVID-19
CPT/HCPCS: 36415; 71045; 80053; 83605; 84484; 84703; 85025; 85379; 85610; 85730; 87635; 93005; 96374; 99285; A9270; J1885; J7030; 71275; 71275-26; U0002